=== PATIENT | female | born 1930 | race Caucasian/White ===

== ENCOUNTER 2018-09-10 11:14 | Inpatient (IN) | payer MEDICARE ==
[2018-09-10 12:04] LABS: #Basophils 0.1 thou/uL (0.0-0.2); #Lymphocytes 1.4 thou/uL (1.20-3.40); #Monocytes 0.5 thou/uL (0.11-0.59); #Neutrophils 4.2 thou/uL (1.40-6.50); %Eosinophils 0.6 % (0.0-10.0); %Lymphocytes 22.8 % (21.0-51.0); %Monocytes 7.9 % (0.0-10.0); %Neutrophils 67.7 % (42.0-75.0); Hemoglobin 14.3 g/dL (12.0-16.0); Mean Corpuscular HGB CONC 32.5 g/dL (32.0-36.0); Mean Corpuscular Hemoglobin 31.1 pg (27.0-31.0); Mean Corpuscular Volume 95.7 fL (78.0-98.0); Mean Platelet Volume 7.3 fL (7.4-10.4); Platelet Count 294 thou/uL (130-400); RBC Distribution Width 12.9 % (11.5-14.5); Red Blood Cell (RBC) Count 4.59 mill/uL (4.20-5.40); White Blood Cell (WBC) Count 6.2 thou/uL (4.8-10.8)
[2018-09-10 12:22] LABS: ALT (SGPT) 8 U/L (8-55); AST (SGOT) 11 U/L (5-34); Albumin 3.4 g/dL (3.4-4.8); Alkaline Phosphatase 61 U/L (40-150); Anion Gap 13 mmol/L (10-20); BUN (Urea Nitrogen) 9 mg/dL (9.8-20.1); Bilirubin, Total 0.8 mg/dL (0.2-1.2); CK (CPK) 19 U/L (29-168); Calc. Creatinine Clearance 0 mL/min (70-130); Calcium 9.2 mg/dL (7.8-10.44); Carbon Dioxide 25 mmol/L (23-31); Chloride 108 mmol/L (98-107); Estimated GFR-MDRD 88; Glucose 97 mg/dL (83-110); Lipase Less than 4 U/L (8-78); Potassium 3.1 mmol/L (3.5-5.1); Protein, Total 6.4 g/dL (6.0-8.3); Sodium 143 mmol/L (136-145)
[2018-09-10 12:26] LABS: CKMB 0.8 ng/mL (0-6.6); Troponin I 0.017 ng/mL (< 0.028)
[2018-09-10 12:48] LABS: Bilirubin Negative (Negative); Blood, Urine Negative (Negative); Clarity CLOUDY (Clear); Glucose, Urine (Dipstick) Negative (Negative); Leukocyte Negative (Negative); Nitrite Negative (Negative); Protein, Urine (Dipstick) Negative (Neg-Trace); Specific Gravity, Urine 1.019 (1.002-1.036); Urobilinogen 0.2 mg/dL (0.2-1.0)
--- NOTE | 2018-09-10 12:50 | CT ---
CTA CHEST WITH 3D VOLUME RENDERING WITH CONTRAST: Date: 09/10/18 INDICATION: Atrial fibrillation, difficulty breathing, tachypnea. FINDINGS: There is enlargement of the pulmonary arterial system, which may relate to changes of pulmonary arter y hypertension. There are bilateral multifocal filling defects of the segmental and subsegmental pulm onary arterial branches compatible with multifocal bilateral acute pulmonary emboli. There is a mild to moderate pericardial effusion. There is evidence of COPD and mild pulmonary fibrosis. Scattered sinclair bpleural reticulonodular opacities are present. There is no evidence of pleural effusion or pneumotho rax. Diffuse vascular disease is present, including coronary artery calcium. There is age-indetermina te compression fracture of T12. Correlate clinically. IMPRESSION: 1. Multifocal acute bilateral pulmonary emboli. 2. Mild to moderate pericardial effusion. 3. Evidence to indicate sequelae from pulmonary arterial hypertension. Telephone call findings placed to ER physician, Lázaro Nguyen, at 1203 hours on 09/10/18. CODE CR. POS: [facility]
[2018-09-10] MEDS ORDERED: Aspirin 325 MG TAB ONE (12:52)
[2018-09-10] MEDS ORDERED: Enoxaparin Sodium 60 MG/0.6 ML SYRINGE ONE (12:52)
[2018-09-10] MEDS ORDERED: hydrALAZINE 25 MG TAB ONE (14:57)
[2018-09-10] MEDS ORDERED: hydrALAZINE 10 MG TAB PO PRN (15:05)
[2018-09-10] MEDS ORDERED: ISOVUE-370 76%-LOCM 1 ML ONE (15:16)
[2018-09-10 15:26] LABS: Troponin I 0.019 ng/mL (< 0.028)
[2018-09-10 16:41] VITALS: BMI 17.9
[2018-09-10] MEDS ORDERED: Sodium Chloride 0.9% 1,000 ML IV SCH (17:00)
[2018-09-10 18:18] LABS: Troponin I 0.023 ng/mL (< 0.028)
--- NOTE | 2018-09-10 19:06 | HP ---
DATE OF ADMISSION: 09/10/2018 CHIEF COMPLAINT: Shortness of breath. HISTORY OF PRESENT ILLNESS: The patient is an 88-year-old female who has a history of dementia. The patient's daughters indicate that she had begun to develop some aggression related to her dementia. Dr. Elliott who is her PCP started the patient on some Risperdal and this ultimately did help resolv e the patient's aggressive behavior, but the patient became very lethargic and slept most of the time . Ultimately, once they recognize this was a result of the medication, Dr. Elliott decreased the dos age down to 0.5 mg, which is a third of the original dose. Subsequently, the patient was more awake and had more of a normal affect without the lethargy and has not had a return of her agitation or agg ression. However, over the last couple of weeks, the patient has been reporting significant shortnes s of breath. She has inability to even transfer effectively because of dyspnea. This has been occur ring at rest as well. They specifically deny that she has had any lower extremity injuries. She mota s have some chronic lower extremity edema if she has been on her feet throughout the day much at all. REVIEW OF SYSTEMS: Notable for some chronic constipation requiring some regular use of MiraLax. Oth erwise, she has had no fevers or chills, although she is hot and cold by nature. They also report th at her appetite has been intermittent and she tends to prefer soft foods. Otherwise, a 10-system rev iew was negative to the degree that it could be obtained from the patient with dementia. PAST MEDICAL HISTORY: Notable for the above-mentioned dementia, macular degeneration. Record indica fab she has hyperthyroidism, but she may have had that at one point, but now appears to be hypothyroi d on supplementation. She has osteoporosis with kyphosis. Daughters also had initially indicated th at she had atrial fibrillation, however, it turns out this has not ever actually been diagnosed. Dr. Elliott apparently had auscultated the patient and heard some irregularity and was concerned for the possibility of atrial fibrillation. A Holter monitor was ordered, but has not yet been performed. PAST SURGICAL HISTORY: Cholecystectomy, hysterectomy, tonsillectomy. FAMILY HISTORY: Not known. SOCIAL HISTORY: The patient is a nonsmoker, nondrinker, nondrug user. She lives next to her [facility] and has a family member staying with her basically [id number]. She is still and july es with her 91-year-old as well. ALLERGIES: None. MEDICATIONS: Aspirin, levothyroxine, Risperdal, lisinopril, memantine, calcium and MiraLax. PHYSICAL EXAMINATION: VITAL SIGNS: BP 188/104, pulse 94, respirations 29, O2 saturation 97% on 2 liters. GENERAL APPEARANCE: A frail, age appropriate female. She is awake and alert. She is in no distress . She is taking very short choppy shallow breaths, almost panting, but does not appear to be distres sed and is able to converse. HEENT: No OP lesions. NECK: Supple and symmetric. HEART: Regular with occasional ectopy. There are no significant murmurs or rubs noted. LUNGS: Have mild bibasilar rales, but fairly minimal generally diminished air exchange throughout. ABDOMEN: Soft, nontender, nondistended. Positive bowel sounds. There are no masses, no organomegal y. EXTREMITIES: Warm and dry with no edema. She does have some varicosities. No palpable cords. No e rythema. No tenderness. LABORATORY DATA: White count 6.2, hemoglobin 14.3, platelets 294,000. Sodium 143, potassium 3.1, ch loride 108, CO2 25, BUN 9, creatinine 0.64, glucose 97, calcium 92. CK is 19. Troponin 0.017. BNP 103. Albumin 3.4. Lipase less than 1. Urinalysis is negative. CT angio of the chest reveals multi ple bilateral pulmonary emboli at the segmental and subsegmental levels. She has [id number] pe ricardial effusion. No evidence to indicate any sequela of pulmonary hypertension. EKG shows sinus rhythm with occasional PACs and some slight prolongation of the QT. IMPRESSION AND PLAN: 1. Pulmonary embolism. The patient has multiple bilateral segmental and subsegmental pulmonary embo li. She has had Lovenox 1 mg/kg. We will continue that b.i.d. I discussed the case with Dr. Qamar aguilar. We will consult him as well. We will maintain supplemental oxygen as needed. I discussed with t he patient and her daughters the possibility of NOACs versus warfarin. 2. Pericardial effusion, mild to moderate in size. We will obtain an echocardiogram. 3. Hypothyroidism, repleted in the ER. 4. Hypertension. The patient's daughter has a log of her blood pressure and heart rate over the t month. Her blood pressure is typically 130s, maybe 140s systolic and her heart rate has been in th e 90s to low 100s throughout that time. We will give her her usual medications along with p.r.n. 5. Dementia. The patient appears to be quite calm and steady at the moment. She obviously had some history of some agitation. We will continue to monitor that closely. Concerning that the risperido ne may be causing some QT prolongation. 6. Hypothyroidism. Continue with her usual dose of levothyroxine. DISPOSITION: The patient was initially made DNR; however, the daughters felt they needed to discuss it with the patient's 91-year-old . The daughters are the patient's surrogate decision makers .
[2018-09-10] MEDS: Enoxaparin Sodium 60 MG/0.6 ML SYRINGE SC SCH (20:58)
--- NOTE | 2018-09-10 22:28 | ULT ---
BILATERAL LOWER EXTREMITY VENOUS DUPLEX EXAM: History: Leg pain and swelling. History of pulmonary emboli. FINDINGS: Real-time color doppler evaluation of the right and left lower extremities were performed from groin to calf. This includes the evaluation of common femoral, superficial and profunda femoral, saphenous, popliteal, and trifurcation veins. On the right side there is normal compressibility and augmentation and no evidence of DVT. On the left side there is evidence of some nonocclusive thrombus of the common femoral and profunda f emoral vessels. IMPRESSION: 1. No evidence of DVT of the right leg. 2. Non-occlusive thrombus within the common femoral vein and profunda femoral vein, compatible with D VT of the left lower extremity. POS: [facility]
--- NOTE | 2018-09-10 22:29 | CON ---
DATE OF CONSULTATION: 09/10/2018 SERVICE: Pulmonary Medicine. REASON FOR CONSULTATION: PE. HISTORY OF PRESENT ILLNESS: The patient is an 88-year-old white female with past medical history significant for advanced dementia with agitation. She was recently given some dose of risperidone. It caused an improvement in her agitation, but she became hyper-sedated for a long period of time. Ultimately, they slowly backed off the medication and realized 0.5 mg was a good dose for her on a nightly basis. It has leveled off for agitation and she is able to participate with the family. In this setting, she started having increasing shortness of breath, weakness. She was unable to do anything without significant assistance. Ultimately, because of the horrendous weakness, she was brought to the emergency department for evaluation and discovered to have hypoxic respiratory failure. She underwent initial diagnostic evaluation and CT PE protocol was consistent with bilateral pulmonary emboli. She cannot provide absolutely any history of the presentation because she has advanced dementia. She has 2 daughters and a granddaughter who are familiar with the medical community and they had many questions and we spent a great deal of time talking through some of the issues. PAST MEDICAL HISTORY: 1. Dementia, advanced. 2. Pulmonary embolism, new diagnosis with no history of DVTs. 3. Macular degeneration. 4. Hyperthyroidism. 5. Osteoporosis. PAST SURGICAL HISTORY: 1. Cholecystectomy. 2. Hysterectomy. 3. Tonsillectomy. FAMILY HISTORY: Noncontributory. SOCIAL HISTORY: She is a nonsmoker. She does not use any alcohol or illicit drugs. She lives right next to one of her daughters in [place]. She has no exposure to chemicals, dust asbestos or tuberculosis. ALLERGIES: No known drug allergies. MEDICATIONS: Lists of her inpatient medications were reviewed. No specific updates were made at this time. REVIEW OF SYSTEMS: General, head, ears, eyes, nose, throat, cardiovascular, respiratory, GI, , musculoskeletal, neurologic and skin is negative as mentioned in HPI. PHYSICAL EXAMINATION: VITAL SIGNS: Afebrile, pulse 98, blood pressure 187/86, respirations 28, saturation 96% on 2 liters nasal cannula. GENERAL: The patient is awake, alert, no apparent distress. LUNGS: Excellent air entry with no prolonged expiratory phase. There is no wheezing or rhonchi present. HEART: Normal rate, regular. ABDOMEN: Soft, nontender, nondistended. Bowel sounds are positive. MUSCULOSKELETAL: No cyanosis or clubbing. There is no pitting in the bilateral lower extremities. NEUROLOGIC: Grossly nonfocal. LABORATORY DATA: WBC 6.2, hemoglobin 14.3, platelets 294,000. Basic metabolic profile is essentially unremarkable except for potassium of 3.1. Liver function studies are unremarkable. BNP is minimally elevated at 103. Cardiac enzymes are gently up trending, but remain in the normal range at 0.23. Urinalysis is unremarkable. IMAGING DATA: CTA of the chest demonstrates bilateral pulmonary emboli. The right atrium is a little generous. That being said, there is no significant reflux of contrast into the inferior vena cava. The left ventricular cavity has a normal contour. The RV does not look overtly overloaded. She does have 4 chamber dilations. Left atrium is very well filled. Interstitial prominence is present throughout bilateral lung hammond. Diffuse calcifications are present. ASSESSMENT: 1. Acute hypoxic respiratory failure. 2. Acute pulmonary embolism without overt right ventricular heart strain. 3. Dementia, advanced. DISCUSSION AND PLAN: From my perspective, the patient is doing fine from a respiratory standpoint. We will wean away the oxygen as tolerated. I agree with her current choice of anticoagulation. I talked about the risks and benefits of anticoagulation versus no anticoagulation. I have also talked about the risks and benefits of pursuing a Coumadin versus a direct oral anticoagulant. They are going to think about what they want to do moving forward. They definitely are going to go with anticoagulation, but they are trying to decide about whether or not to go with a novel drug or conventional drug like Coumadin. Once they make that decision, we will move forward with that. I think she would be a decent candidate for a dose adjusted Eliquis for her advanced age and frailty. Pulmonary Critical Care will continue to follow along. That being said, I have nothing to change with the current management selection. 70 minutes have been devoted to this patient in various activities. I personally reviewed all imaging studies and laboratory data noted within this document. For fifty percent of this time, I was interacting with the patient at the bedside or coordinating care with the care team. For the remainder of the time I was immediately available to the patient in the hospital unit. MIGUEL
[2018-09-11 05:52] LABS: #Eosinphils 0.1 thou/uL (0.0-0.7); #Lymphocytes 1.8 thou/uL (1.20-3.40); #Monocytes 0.5 thou/uL (0.11-0.59); #Neutrophils 2.8 thou/uL (1.40-6.50); %Basophils 0.6 % (0.0-1.0); %Eosinophils 2.8 % (0.0-10.0); %Monocytes 9.6 % (0.0-10.0); Hemoglobin 12.7 g/dL (12.0-16.0); Mean Corpuscular Hemoglobin 30.9 pg (27.0-31.0); Mean Corpuscular Volume 96.4 fL (78.0-98.0); Mean Platelet Volume 7.6 fL (7.4-10.4); Platelet Count 250 thou/uL (130-400); Platelet Count 260 thou/uL (130-400); RBC Distribution Width 13.1 % (11.5-14.5); Red Blood Cell (RBC) Count 4.11 mill/uL (4.20-5.40); White Blood Cell (WBC) Count 5.2 thou/uL (4.8-10.8)
[2018-09-11 06:10] LABS: Anion Gap 9 mmol/L (10-20); BUN (Urea Nitrogen) 7 mg/dL (9.8-20.1); Calc. Creatinine Clearance 53 mL/min (70-130); Calcium 8.2 mg/dL (7.8-10.44); Carbon Dioxide 27 mmol/L (23-31); Chloride 109 mmol/L (98-107); Estimated GFR-MDRD Greater than 90; Glucose 83 mg/dL (83-110); Sodium 142 mmol/L (136-145)
[2018-09-11] MEDS: Enoxaparin Sodium 60 MG/0.6 ML SYRINGE SC SCH (08:40)
[2018-09-11] MEDS: Calcium Carbonate 600 MG TAB PO SCH (11:42)
[2018-09-11] MEDS: Lisinopril 10 MG TAB PO SCH (11:42)
[2018-09-11] MEDS ORDERED: Calcium Carbonate 600 MG TAB PO SCH (12:00)
[2018-09-11] MEDS ORDERED: Lisinopril 10 MG TAB PO SCH (12:00)
[2018-09-11] MEDS ORDERED: Levothyroxine Sodium 112 MCG TAB PO SCH (14:00)
[2018-09-11] MEDS ORDERED: hydrALAZINE 10 MG TAB PO PRN (18:19)
[2018-09-11] MEDS ORDERED: hydrALAZINE 10 MG TAB PO SCH (18:30)
[2018-09-11] MEDS ORDERED: risperiDONE 1 MG TAB PO SCH (21:00)
[2018-09-11] MEDS ORDERED: MEMANTINE HCL PO SCH (21:00)
[2018-09-11] MEDS: Apixaban 2.5 MG TAB PO SCH (21:10)
--- NOTE | 2018-09-11 21:21 | PDOC.PN ---
- Subjective Encounter Start Date: 09/11/18 Encounter Start Time: 12:00 Patient has dementia. Denies any problems with SOB or CP. Daughter believes she is doing better. - Objective Resuscitation Status: Resuscitation Status FULL:Full Resuscitation Vital Signs & Weight: Vital Signs (12 hours) Temp Pulse Resp BP BP Pulse Ox 09/11/18 18:47 92 195/88 H 09/11/18 17:40 97.8 F 92 17 195/88 H 98 09/11/18 15:10 143/100 H 09/11/18 13:56 79 187/91 H 09/11/18 12:00 98.0 F 92 18 187/91 H 97 Weight Admit Weight 101 lb 3 oz Weight 101 lb 3 oz I&O: 09/10/18 09/11/18 09/12/18 06:59 06:59 06:59 Intake Total 240 960 Output Total 300 Balance 240 660 Result Diagrams: 09/11/18 04:46 09/11/18 04:46 Phys Exam - Physical Examination Constitutional: NAD Respiratory: no wheezing, no rales, no rhonchi Decreased breath sounds generally. Still shallow breathing. Cardiovascular: RRR, no significant murmur Gastrointestinal: soft, non-tender, no distention Musculoskeletal: no edema Psychiatric: normal affect Dx/Plan (1) Pulmonary embolus Code(s): I26.99 - OTHER PULMONARY EMBOLISM WITHOUT ACUTE COR PULMONALE Status : Acute Comment: Bilateral, multiple. Continue with Lovenox. Family has largely decided to go with Xarelto. Once they confirm this, I can make the switch. Until then, continue to work on weaning oxygen as tolerated and continue Lovenox. (2) DVT (deep venous thrombosis) Code(s): I82.409 - ACUTE EMBOLISM AND THOMBOS UNSP DEEP VN UNSP LOWER EXTREMITY Status: Acute Comment: LLE DVT. (3) Tricuspid regurgitation Code(s): I07.1 - RHEUMATIC TRICUSPID INSUFFICIENCY Status: Acute (4) Dementia Code(s): F03.90 - UNSPECIFIED DEMENTIA WITHOUT BEHAVIORAL DISTURBANCE Status: Acute (5) Hypertension Code(s): I10 - ESSENTIAL (PRIMARY) HYPERTENSION Status: Acute Comment: Continue Lisinopril (6) Hypothyroidism Code(s): E03.9 - HYPOTHYROIDISM, UNSPECIFIED Status: Acute Comment: Continue synthroid. - Plan * above.
--- NOTE | 2018-09-11 22:11 | PRG ---
DATE OF SERVICE: 09/11/2018 SERVICE: Pulmonary Medicine. INTERVAL HISTORY: The patient is doing great from a respiratory standpoint. She has no distress tod ay. Her family is with her at bedside. She is finally able to get a little bit of rest. She had a fairly rough night. She did not understand where she was or what the situation was. There is no antonio dence of bleeding at this time. Otherwise, there has been no notable change to her condition. She r emains on a little bit of oxygen. Nursing reports no overnight events. PHYSICAL EXAMINATION: VITAL SIGNS: Afebrile, pulse 92, blood pressure 143/100, respirations 17, saturation 98% on 2 liters nasal cannula. GENERAL: The patient is awake and alert, in no apparent distress. LUNGS: Decent air entry. There are no rhonchi or wheezing present. HEART: Normal rate, regular. ABDOMEN: Soft, nontender, nondistended. Bowel sounds are positive. MUSCULOSKELETAL: No cyanosis or clubbing. There is no pitting in the bilateral lower extremities. NEUROLOGIC: Grossly nonfocal. LABORATORY DATA: Hemoglobin 12.7. Potassium 3.0. Basic metabolic profile is otherwise unremarkable . Cardiac enzymes remain essentially unremarkable x3. ASSESSMENT: 1. Acute hypoxic respiratory failure. 2. Acute pulmonary embolism. 3. Deep vein thrombosis. 4. Dementia, advanced. DISCUSSION AND PLAN: After discussing the risks and benefits of pursuing anticoagulation or no antic oagulation and the different types of therapy that is available, the patient's family has elected to proceed with low-dose Eliquis. We will initiate this tonight and convert her off the subcu Lovenox. We will start to wean oxygen. If she is off by tomorrow, she will be stable for transition out of [facility]. Pulmonary Critical Care will continue to follow along if she remains in house.
[2018-09-12 05:20] LABS: #Eosinphils 0.1 thou/uL (0.0-0.7); #Lymphocytes 1.7 thou/uL (1.20-3.40); #Monocytes 0.4 thou/uL (0.11-0.59); #Neutrophils 2.7 thou/uL (1.40-6.50); %Basophils 0.5 % (0.0-1.0); %Eosinophils 2.4 % (0.0-10.0); %Lymphocytes 34.6 % (21.0-51.0); %Monocytes 8.9 % (0.0-10.0); %Neutrophils 53.6 % (42.0-75.0); Hemoglobin 12.8 g/dL (12.0-16.0); Mean Corpuscular HGB CONC 32.7 g/dL (32.0-36.0); Mean Corpuscular Hemoglobin 31.5 pg (27.0-31.0); Mean Corpuscular Volume 96.3 fL (78.0-98.0); Mean Platelet Volume 7.3 fL (7.4-10.4); Platelet Count 281 thou/uL (130-400); Red Blood Cell (RBC) Count 4.06 mill/uL (4.20-5.40)
[2018-09-12] MEDS ORDERED: Levothyroxine Sodium 112 MCG TAB PO SCH (06:00)
[2018-09-12 06:01] LABS: Anion Gap 5 mmol/L (10-20); BUN (Urea Nitrogen) 9 mg/dL (9.8-20.1); Calc. Creatinine Clearance 43 mL/min (70-130); Calcium 8.9 mg/dL (7.8-10.44); Carbon Dioxide 31 mmol/L (23-31); Chloride 108 mmol/L (98-107); Estimated GFR-MDRD 82; Glucose 89 mg/dL (83-110); Potassium 3.7 mmol/L (3.5-5.1); Sodium 140 mmol/L (136-145)
[2018-09-12] MEDS: Apixaban 2.5 MG TAB PO SCH ×2 (09:19→19:07)
[2018-09-12] MEDS: Calcium Carbonate 600 MG TAB PO SCH (09:19)
[2018-09-12] MEDS: Lisinopril 10 MG TAB PO SCH (09:19)
[2018-09-12 15:39] VITALS: BP 155/76; TEMP 98.7
--- NOTE | 2018-09-12 18:21 | PRG ---
DATE OF SERVICE: 09/12/2018 SERVICE: Pulmonary Medicine. INTERVAL HISTORY: The patient is doing fine from a respiratory standpoint. He is breathing comforta cyrus. She is down to 1 liter nasal cannula. We have not tried her on room air yet. Otherwise, there has been no interval change to her condition. She is pleasantly confused and has no specific compla ints currently. OBJECTIVE: VITAL SIGNS: Afebrile, pulse 93, blood pressure 155/76, respirations 20, saturation 96% on 1 liter n debbi cannula. GENERAL: The patient is awake, alert, in no apparent distress. LUNGS: Excellent air entry. There is no prolonged expiratory phase or wheezing present. HEART: Normal rate, regular. ABDOMEN: Soft, nontender, nondistended. Bowel sounds are positive. MUSCULOSKELETAL: No cyanosis or clubbing. There is no pitting in the bilateral lower extremities. NEUROLOGIC: Grossly nonfocal. LABORATORY DATA: Potassium 3.7. Basic metabolic profile is otherwise unremarkable. Hemoglobin 12.8 , platelets 281,000. WBC falls within the normal limits. Urine cultures negative. IMAGING: Echocardiogram does not demonstrate any evidence of right ventricular heart strain. There is a normal ejection fraction. Left side does not appear to be underfilled at this time. ASSESSMENT: 1. Acute hypoxic respiratory failure, resolving. 2. Acute pulmonary embolism. 3. Deep venous thrombosis. 4. Dementia, advanced. DISCUSSION AND PLAN: The patient has been started on Eliquis (this is dose adjusted for her age and frailty). At this point, the patient has no further requirements for inpatient Pulmonary or Critical Care opinion. I will check her saturations on room air. If they are okay, she can be discharged fr om the hospital today or tomorrow. If she requires oxygen, this can be arranged tomorrow for the out patient setting and she is still stable for transition out of the hospital. With her advanced sara ia, the sooner we get her out of the hospital and to her home environment, she will do long-ter m.
--- NOTE | 2018-09-13 13:49 | EKG ---
Test Reason : Blood Pressure : / mmHG Vent. Rate : 091 BPM Atrial Rate : 091 BPM P-R Int : 154 ms QRS Dur : 080 ms QT Int : 422 ms P-R-T Axes : 064 025 061 degrees QTc Int : 519 ms Normal sinus rhythm Possible Left atrial enlargement Prolonged QT Abnormal ECG Confirmed by JOSE ELIAS DOUGLAS, FEI ([id number]), rewrite editor SHARDA KIMBALL ([id number]) on 09/13/2018 1:48:40 PM Referred By: Confirmed By:FEI MOCTEZUMA MD
== END 2018-09-12 19:40 | disposition home or self-care (01) | DRG 175 ==
LOC: ERS 11:14 → 2NO 16:26
PROVIDERS: ADMIT Internal Medicine; ATTEND Internal Medicine
PROC: B50DYZZ Plain Radiography of Bilateral Lower Extremity Veins using Other Contrast (ICD-10-PCS; principal; 2018-09-10)
DX: I26.99 Other pulmonary embolism without acute cor pulmonale (principal); J96.01 Acute respiratory failure with hypoxia; I31.3 Pericardial effusion (noninflammatory); I07.1 Rheumatic tricuspid insufficiency; F03.90 Unspecified dementia, unspecified severity, without behavioral disturbance, psychotic disturbance, mood disturbance, and anxiety; E03.9 Hypothyroidism, unspecified; I10 Essential (primary) hypertension; M81.0 Age-related osteoporosis without current pathological fracture; K59.09 Other constipation
CPT/HCPCS: 36415; 36416; 71275; 80048; 80053; 81003; 82550; 82553; 83690; 83880; 84484; 85025; 85520; 87086; 93005; 93306; 93970; 94760; 96360; 96372; J1650

== ENCOUNTER 2018-10-27 08:08 | Inpatient (IN) | payer MEDICARE ==
[2018-10-27 08:50] LABS: #Eosinphils 0.2 thou/uL (0.0-0.7); #Monocytes 0.4 thou/uL (0.11-0.59); #Neutrophils 4.5 thou/uL (1.40-6.50); %Basophils 0.7 % (0.0-1.0); %Lymphocytes 27.5 % (21.0-51.0); %Monocytes 5.8 % (0.0-10.0); Hemoglobin 13.2 g/dL (12.0-16.0); Mean Corpuscular HGB CONC 33.1 g/dL (32.0-36.0); Mean Corpuscular Hemoglobin 31.9 pg (27.0-31.0); Mean Corpuscular Volume 96.4 fL (78.0-98.0); Mean Platelet Volume 7.2 fL (7.4-10.4); Platelet Count 294 thou/uL (130-400); RBC Distribution Width 12.8 % (11.5-14.5); Red Blood Cell (RBC) Count 4.14 mill/uL (4.20-5.40); White Blood Cell (WBC) Count 7.1 thou/uL (4.8-10.8)
[2018-10-27 09:12] LABS: ALT (SGPT) 8 U/L (8-55); AST (SGOT) 10 U/L (5-34); Alkaline Phosphatase 53 U/L (40-150); Anion Gap 5 mmol/L (10-20); BUN (Urea Nitrogen) 9 mg/dL (9.8-20.1); Bilirubin, Total 0.6 mg/dL (0.2-1.2); Calc. Creatinine Clearance 0 mL/min (70-130); Calcium 8.8 mg/dL (7.8-10.44); Carbon Dioxide 34 mmol/L (23-31); Chloride 108 mmol/L (98-107); Estimated GFR-MDRD 86; Globulin 2.9 g/dL (2.4-3.5); Glucose 134 mg/dL (83-110); Potassium 3.9 mmol/L (3.5-5.1); Protein, Total 5.9 g/dL (6.0-8.3); Sodium 143 mmol/L (136-145)
--- NOTE | 2018-10-27 09:16 | RAD ---
AP PELVIS: Date: 10/27/18 HISTORY: Fell out of bed. FINDINGS: There is an inter and subtrochanteric fracture of the left hip. The bones appear demineralized. Fract ure is minimally displaced as seen on this single AP projection. Pelvic ring itself appears intact. IMPRESSION: Inter and slightly subtrochanteric fracture of the left hip. POS: [facility]
--- NOTE | 2018-10-27 09:17 | RAD ---
LEFT HIP 2 VIEWS: Date: 10/27/18 HISTORY: Fell out of bed. FINDINGS: There is an obliquely oriented inter/subtrochanteric fracture of the left hip. The fracture extends t hrough the greater trochanter and extends into a subtrochanteric region beneath the lesser trochanter . Fracture is minimally displaced. The bones are demineralized. IMPRESSION: Inter and subtrochanteric fracture of the left hip. POS: [facility]
--- NOTE | 2018-10-27 09:25 | CT ---
CT BRAIN WITHOUT CONTRAST: Date: 10/27/18 HISTORY: Injury, fall, altered mental status. 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 No evidence of acute infarct, hemorrhage, midline shift, or abnormal extra-axial f luid collections are noted. The ventricular size is appropriate and the basilar cisterns are patent. The bony calvarium is intact. The visualized paranasal sinuses and mastoid air cells are well aerated . IMPRESSION: No CT evidence of acute intracranial process. POS: [facility]
[2018-10-27] MEDS ORDERED: Ondansetron PF 4 MG/2 ML Vial ONE (10:15)
[2018-10-27] MEDS ORDERED: Morphine 4 MG/ML VIAL ONE (10:38)
--- NOTE | 2018-10-27 10:42 | RAD ---
PORTABLE CHEST 1 VIEW: Date: 10/27/18 Time: 0850 hours HISTORY: Preoperative evaluation. Left hip fracture. FINDINGS: Comparison made with exam of 08/28/18. The heart is enlarged. The aorta is tortuous. Chronic changes are again seen in the lung hammond. No f ocal areas of consolidation, pneumothorax, itz pulmonary edema, or pleural effusions are seen. IMPRESSION: No acute process. POS: [facility]
[2018-10-27 10:48] LABS: INR-International Normal Ratio 1.3; Prothrombin Time 16.2 SEC (12.0-14.7)
[2018-10-27] MEDS ORDERED: Dextrose 5% in Water 1,000 ML IV PRN (13:58)
[2018-10-27] MEDS ORDERED: Cyclobenzaprine 10 MG TAB PO PRN (13:58)
[2018-10-27] MEDS ORDERED: Ondansetron PF 4 MG/2 ML Vial IVP PRN (13:58)
[2018-10-27] MEDS ORDERED: Ondansetron ODT 4 MG TAB PO PRN (13:58)
[2018-10-27] MEDS ORDERED: Dextrose 50% Abboject 50 ML SYRINGE SLOW IVP PRN (13:58)
[2018-10-27] MEDS ORDERED: hydrALAZINE 20 MG/ML VIAL SLOW IVP PRN (13:58)
[2018-10-27] MEDS ORDERED: Morphine 4 MG/ML VIAL SLOW IVP PRN (14:15)
[2018-10-27 14:23] VITALS: BMI 17.2
--- NOTE | 2018-10-27 14:32 | HP ---
CONSULTATIONS: Orthopedics, Dr. Thomas. HISTORY OF PRESENT ILLNESS: The patient is an 88-year-old woman, who resides at home with her 91-year-old . The patient reportedly fell out of bed this morning, landing on her left side. The patient was unable to ambulate. EMS was notified. She was brought to the emergency department. She underwent evaluation. On examination, she was noted to have a left hip fracture, at which time, we were asked to evaluate the patient for admission and obtain orthopedic consultation. By report, there was no loss of consciousness or the patient hitting her head. The patient is on Eliquis for her chronic atrial fibrillation. The patient underwent CT evaluation of her head, did not show any bleed. Neurologically, she appears at her baseline, which is A and O x1 at best. ALLERGIES: NONE. CURRENT MEDICATIONS: Eliquis, calcium, Synthroid, lisinopril, Namenda, and Risperdal. PAST MEDICAL HISTORY: Hypothyroid, dementia, osteoporosis, atrial fibrillation, and macular degeneration. PAST SURGICAL HISTORY: Cholecystectomy, hysterectomy, and tonsillectomy. SOCIAL HISTORY: The patient lives with her spouse, they live next to their daughter. The patient has a caregiver who comes in during the day and then family takes care of her at night. The patient prior to this fall could ambulate independently, but needed help due to her disorientation. REVIEW OF SYSTEMS: A 10-point review of systems is negative except for otherwise stated. PHYSICAL EXAMINATION: VITAL SIGNS: Blood pressure 112/55, heart rate 76, respirations 20, oxygen saturations 100% on 2 L via nasal cannula, and temperature is 97.8. GENERAL: The patient is resting in bed. She is awake, does not follow command, and will acknowledge me verbally, but otherwise is nonverbal. According to the daughter, who is at bedside, this is her baseline. The patient appears frail and somewhat emaciated. HEENT: Head is normocephalic and atraumatic. Eyes are PERRLA. The patient will not follow to check extraocular motion intact, but appears intact. Ears are atraumatic without discharge. Oropharynx is clear. NECK: Nontender. Trachea is midline. No JVD. CHEST: Clear to auscultation with moderate inspiratory and expiratory effort, again restricted by the patient's compliance. HEART: Irregularly irregular, consistent with her atrial fibrillation. ABDOMEN: Soft, flat, and nontender with active bowel sounds. PELVIS: Stable with tenderness to palpation of the left hip, consistent with her fracture. EXTREMITIES: Neurovascularly intact x4. BACK: By report, it is atraumatic and nontender. DIAGNOSTIC STUDIES: LABORATORY RESULTS: White blood cell count 7.1, hemoglobin 13.2, hematocrit 39.9, and platelets 294. Sodium 143, potassium 3.9, chloride 108, CO2 of 34, BUN 9, creatinine 0.65, and glucose 134. LFTs are unremarkable. PT 16, INR 1.3, and PTT 27. IMAGING STUDIES: CT of the brain without contrast shows no CT evidence of acute intracranial process. AP pelvis shows an intertrochanteric/subtrochanteric fracture of the left hip. Left hip view showed inter and subtrochanteric fracture of the left hip. AP chest shows no acute process. ASSESSMENT AND PLAN: 1. Status post fall from bed. 2. Left intertrochanteric and subtrochanteric hip fracture. 3. History of severe dementia. 4. History of hypothyroidism. 5. History of hypertension. Plan will be to admit the patient to the surgical floor. Treatment discussion and options were discussed with the daughter. The patient also is a do not resuscitate. The patient will have a family discussion to discuss whether they want to pursue a surgical procedure versus hospice-like treatment. The family will speak with Dr. Thomas. He may give them his view and we will proceed as directed by the family. The patient currently will have IV pain medicine, pulmonary toilet, gastritis, and mechanical VTE prophylaxis. We will make her n.p.o. after midnight unless this changes. The evaluation, examination, laboratory, and radiographic findings will be discussed with Dr. Arizmendi after this dictation. Job ID: [id number]
[2018-10-27] MEDS ORDERED: Acetaminophen 1,000 MG in Premix Bag 1 BAG IVPB SCH (15:00)
[2018-10-27] MEDS ORDERED: Levothyroxine Sodium 112 MCG TAB PO SCH (15:00)
[2018-10-27] MEDS ORDERED: CEFAZOLIN 2 GM/50 ML-DEXTROSE 2 GM in Premix Bag 1 BAG IVPB SCH (16:30)
[2018-10-27] MEDS: Ketorolac Tromethamine 30 MG/ML VIAL IVP SCH ×2 (16:43→20:19)
[2018-10-27] MEDS ORDERED: Prevnar 13-Val Conj/PF 0.5 ML SYRINGE IM ONE (16:45)
[2018-10-27] MEDS: Sodium Chloride 0.9% 1,000 ML IV SCH (16:53)
[2018-10-27] MEDS: Acetaminophen 1,000 MG in Premix Bag 1 BAG IVPB SCH (20:20)
[2018-10-27] MEDS: Famotidine 20 MG TAB PO SCH (21:05)
[2018-10-28] MEDS: Acetaminophen 1,000 MG in Premix Bag 1 BAG IVPB SCH ×6 (01:27→23:14)
[2018-10-28] MEDS ORDERED: risperiDONE 0.25 MG TAB PO SCH (01:30)
[2018-10-28] MEDS: Ketorolac Tromethamine 30 MG/ML VIAL IVP SCH ×6 (02:25→23:14)
[2018-10-28] MEDS: Levothyroxine Sodium 112 MCG TAB PO SCH (03:19)
[2018-10-28 05:53] LABS: #Lymphocytes 1.6 thou/uL (1.20-3.40); #Neutrophils 7.8 thou/uL (1.40-6.50); %Basophils 0.1 % (0.0-1.0); %Eosinophils 0.2 % (0.0-10.0); %Monocytes 9.6 % (0.0-10.0); %Neutrophils 75.2 % (42.0-75.0); Hemoglobin 10.6 g/dL (12.0-16.0); Mean Corpuscular HGB CONC 33.4 g/dL (32.0-36.0); Mean Corpuscular Hemoglobin 32.3 pg (27.0-31.0); Mean Corpuscular Volume 96.5 fL (78.0-98.0); Mean Platelet Volume 7.7 fL (7.4-10.4); Platelet Count 227 thou/uL (130-400); RBC Distribution Width 12.7 % (11.5-14.5); Red Blood Cell (RBC) Count 3.29 mill/uL (4.20-5.40); White Blood Cell (WBC) Count 10.3 thou/uL (4.8-10.8)
[2018-10-28 06:11] LABS: Anion Gap 7 mmol/L (10-20); BUN (Urea Nitrogen) 19 mg/dL (9.8-20.1); Calc. Creatinine Clearance 47 mL/min (70-130); Calcium 8.3 mg/dL (7.8-10.44); Carbon Dioxide 30 mmol/L (23-31); Chloride 108 mmol/L (98-107); Estimated GFR-MDRD Greater than 90; Glucose 88 mg/dL (83-110); Sodium 141 mmol/L (136-145)
[2018-10-28] MEDS: Famotidine 20 MG TAB PO SCH ×3 (07:41→20:40)
[2018-10-28] MEDS: Lisinopril 10 MG TAB PO SCH (07:42)
[2018-10-28] MEDS ORDERED: Neomycin-Polymyxin 1 ML AMP ONE (07:50)
[2018-10-28] MEDS ORDERED: CEFAZOLIN 2 GM/50 ML BAG ONE (07:50)
[2018-10-28] MEDS ORDERED: traMADol HCl 50 MG TAB PO PRN (08:09)
[2018-10-28] MEDS ORDERED: Ondansetron PF 4 MG/2 ML Vial IVP PRN (08:09)
[2018-10-28] MEDS ORDERED: Fleet Enema 133 ML BOT PR PRN (08:09)
[2018-10-28] MEDS ORDERED: Cepastat Lozenges 1 LOZ PO PRN (08:09)
[2018-10-28] MEDS ORDERED: Bisacodyl 10 MG SUPP PR PRN (08:09)
[2018-10-28] MEDS ORDERED: Ondansetron ODT 4 MG TAB PO PRN (08:09)
[2018-10-28] MEDS ORDERED: Milk Of Magnesia 30 ML UDCUP PO PRN (08:09)
[2018-10-28] MEDS ORDERED: Fentanyl 100 MCG/2 ML VIAL ONE ×2 (08:33→09:46)
[2018-10-28] MEDS ORDERED: PHENYLEPHRINE-NS 100 MCG/ML 10 ML SYRINGE ONE ×2 (08:33→10:45)
[2018-10-28] MEDS ORDERED: Ondansetron PF 4 MG/2 ML Vial ONE (10:45)
[2018-10-28] MEDS ORDERED: PROPOFOL 200 MG/20 ML VIAL ONE (10:45)
[2018-10-28] MEDS ORDERED: Glycopyrrolate 0.2 MG/ML 5 ML SYRINGE ONE (10:45)
[2018-10-28] MEDS ORDERED: Lidocaine 1% PF 5 ML VIAL ONE (10:45)
[2018-10-28] MEDS: Sodium Chloride 0.9% 1,000 ML IV SCH ×2 (11:20→20:45)
--- NOTE | 2018-10-28 11:25 | OP ---
DATE OF PROCEDURE: 10/28/2018 PREOPERATIVE DIAGNOSIS: Comminuted intertrochanteric fracture of the left hip. POSTOPERATIVE DIAGNOSIS: Comminuted intertrochanteric fracture of the left hip. PROCEDURE PERFORMED: Open reduction and internal fixation of intertrochanteric fracture utilizing a trochanteric fixation nail. ANESTHESIA: General. TECHNIQUE: The patient was given preoperative IV antibiotics, was taken to the operating room, placed in a supine position. Satisfactory general anesthesia was performed. The patient was placed in the fracture table. All bony prominence were well padded. Tractions were applied to padded left foot and ankle. C-arm verified good alignment of the intertrochanteric fracture of the proximal femoral in AP and lateral views. The left hip and thigh were then sterilely prepped and draped in the usual fashion. A longitudinal incision was made proximal to the greater trochanter approximately 2-1/2 inches in length. Under fluoroscopic visualization, a guidepin was placed through the greater trochanter and then was overreamed. A Synthes 11 mm trochanteric nail was then inserted into the proximal femur to the proper level through a separate 2-inch incision in the lateral aspect to the thigh. A guidepin was place through the lateral cortex up to the femoral neck and head, and was appropriately measured and 100 mm helical blade was inserted into the femoral neck and head. The intertrochanteric fracture was compressed and then the helical blade was locked onto the berenice through the same incision in the lateral aspect of the thigh. A 5.0 locking screw was inserted into the distal aspect of the berenice. Again, this was performed under fluoroscopic visualization and showed good reduction of the fracture and good internal fixation. Both wounds were then irrigated with normal saline. They were closed using #2 Vicryl for the iliotibial band, 0 Vicryl for the fat and subcutaneous tissue, and the skin was closed with 3-0 Rapide. Sterile dressing was applied and the patient was then awakened, extubated, and transferred to recovery room in stable condition. ESTIMATED BLOOD LOSS: 100 mL. COMPLICATION: None. Job ID: [id number]
--- NOTE | 2018-10-28 13:18 | CON ---
DATE OF CONSULTATION: 10/27/2018 HISTORY OF PRESENT ILLNESS: Ms. Perez is an 88-year-old white female, who has severe dementia. The patient lives at home with her . The patient requires 24-hour care, which is currently being performed by her as well as a nurse during the day and also two of the patient's daughters who live nearby. The patient has severe dementia and is unable to provide any of the history and all the history had been obtained from the patient's daughter. The patient was in bed, and she fell out of bed this morning. She did complain of pain in the left hip area. She was brought to the emergency room, where x-rays revealed a comminuted intertrochanteric fracture of the left proximal femur. PAST MEDICAL HISTORY AND MEDICAL ILLNESS: Severe dementia, hypothyroidism, osteoporosis, atrial fibrillation, macular degeneration, and history of deep venous thrombosis. PAST SURGICAL HISTORY: Cholecystectomy, hysterectomy, and tosillectomy. ALLERGIES: NONE. CURRENT MEDICATIONS: 1. Aspirin 81 mg daily. 2. Levothyroxine. 3. Risperidone. 4. Lisinopril. 5. Eliquis. SOCIAL HISTORY: The patient is . She lives at home. She does not use tobacco or alcohol. PHYSICAL EXAMINATION: GENERAL: The patient is a thin female. She is very soft spoken, but cannot remember any details in the history. She is able to perform simple commands. HEENT: Unremarkable for age. NEUROLOGIC: Cranial nerves 2 through 12 are grossly intact. NECK: Has some limited range of motion, but it is nonpainful. LUNGS: Clear bilaterally. HEART: Regular rate and rhythm. ABDOMEN: Soft, nontender. Bowel sounds positive. : Not done. EXTREMITIES: The patient is able to move both upper extremities and right lower extremity without pain. The left lower extremity is short and externally rotated. She has good peripheral pulse. She is able to move her left ankle and toes well. IMAGING STUDIES: X-rays revealed a comminuted intertrochanteric fracture of the left hip. There are minimal arthritic changes in the hip joint. EKG shows normal sinus rhythm with a rate of 76 with infrequent premature ventricular complexes and PACs. CT scan of the head shows changes of cortical atrophies and chronic small vessel ischemic disease and old infarctions. No evidence of any acute abnormalities. IMPRESSION: 1. Comminuted intertrochanteric fracture of the left hip. 2. Atrial fibrillation. 3. Severe dementia. 4. Hypothyroidism. 5. Osteoporosis. 6. Macular degeneration. PLAN: I talked with the patient's daughter. My recommendation would be to stabilize the left hip with trochanteric fixation nail. This would provide some stability for the hip that would improve nursing care. The patient's daughter questions were answered. She will contact her other sister and siblings and will make a decision. If they do agree to proceed with surgery, then we will schedule this for tomorrow morning. Job ID: [id number]
--- NOTE | 2018-10-28 14:09 | RAD ---
RADIOGRAPH LEFT HIP 2 VIEWS: Date: 10/28/18 Time: 1020 hours HISTORY: 88-year-old female with acute, traumatic intertrochanteric fracture of the left proximal femur. COMPARISON: 10/27/18. FINDINGS: Fluoroscopic spot images obtained with C-arm. There has been interval reduction of the intertrochante yuval fracture. There has been interval placement of a gamma nail type of metallic hardware with distal tip in the femoral head. Short intramedullary nail reaches the proximal-mid femoral diaphysis, with single distal stabilization screw. IMPRESSION: Status post reduction and gamma nail fixation of the acute, traumatic, displaced, left intertrochante yuval fracture. POS: ESTHELA
--- NOTE | 2018-10-28 14:55 | PRG ---
DATE OF SERVICE: 10/28/2018 SUBJECTIVE: The patient is hospital day #2, status post today undergoing ORIF of left hip fracture. The patient did well with the surgery and is currently back on the surgical floor. She is complaining of some pain, but has not attempted any p.o.'s yet. OBJECTIVE: VITAL SIGNS: Temperature 98.0, heart rate 92, blood pressure 129/55, respirations 18, and oxygen saturation is 97% on 2 L via nasal cannula. GENERAL: The patient is resting in bed. She does appear to be in some discomfort. She is repetitive in her words, which from my evaluation yesterday and with family's agreement, this is at her baseline secondary to her dementia and Alzheimer's. HEENT: Unremarkable. LUNGS: Clear to auscultation. HEART: Regular rate and rhythm. ABDOMEN: Soft with active bowel sounds. EXTREMITIES: Neurovascularly intact x4. Postop dressing is clean, dry, and intact. LABORATORY FINDINGS: Preoperatively, white blood cell count 10.3, hemoglobin 10.6, hematocrit 31.7, and platelets 227. Sodium 141, potassium 4.0, chloride 108, CO2 of 30, BUN 19, creatinine 0.62, and glucose 88. IMAGING STUDIES: There were no radiographs to review this morning. ASSESSMENT: 1. Status post fall. 2. Status post open reduction and internal fixation of left hip fracture. 3. Severe Alzheimer's/dementia. PLAN: Plan will be to continue supportive care. Once the pain is controlled, we will have Physical and Occupational Therapy work with her. There was a fairly lengthy discussion with the family members regarding placement afterwards. Family was in agreement that they would not want [facility] placement, that they would rather take her home, but were amiable to rehab or swing bed facility, if available and if appropriate. It is relayed to them that most likely, the decision would need to be made until Tuesday at the earliest. The evaluation, examination, laboratory, and radiographic findings were done with Dr. Arizmendi this morning during rounds. Job ID: [id number]
[2018-10-28] MEDS: Ferrous Gluconate 324 MG TAB PO SCH ×2 (15:33→20:40)
[2018-10-28] MEDS: Multivitamin W/ Minerals 1 TAB PO SCH (15:33)
[2018-10-28] MEDS: Senokot S 8.6-50 MG TAB PO SCH ×2 (15:33→22:19)
[2018-10-28] MEDS ORDERED: Acetaminophen 1,000 MG in Premix Bag 1 BAG IVPB SCH (20:00)
[2018-10-28] MEDS: risperiDONE 1 MG TAB PO SCH (20:40)
[2018-10-28] MEDS: traMADol HCl 50 MG TAB PO PRN (20:51)
[2018-10-29] MEDS: Ketorolac Tromethamine 30 MG/ML VIAL IVP SCH ×4 (05:51→23:42)
[2018-10-29] MEDS: Acetaminophen 1,000 MG in Premix Bag 1 BAG IVPB SCH ×3 (05:51→17:33)
[2018-10-29] MEDS: Levothyroxine Sodium 112 MCG TAB PO SCH (05:52)
[2018-10-29] MEDS: Sodium Chloride 0.9% 1,000 ML IV SCH ×3 (05:55→22:23)
[2018-10-29 06:44] LABS: Hemoglobin 8.3 g/dL (12.0-16.0); Mean Corpuscular HGB CONC 34.1 g/dL (32.0-36.0); Mean Corpuscular Hemoglobin 32.9 pg (27.0-31.0); Mean Corpuscular Volume 96.4 fL (78.0-98.0); Platelet Count 178 thou/uL (130-400); RBC Distribution Width 12.6 % (11.5-14.5); Red Blood Cell (RBC) Count 2.51 mill/uL (4.20-5.40); White Blood Cell (WBC) Count 5.8 thou/uL (4.8-10.8)
[2018-10-29] MEDS: Famotidine 20 MG TAB PO SCH ×2 (08:54→20:56)
[2018-10-29] MEDS: Ferrous Gluconate 324 MG TAB PO SCH ×3 (08:54→21:02)
[2018-10-29] MEDS: Senokot S 8.6-50 MG TAB PO SCH ×2 (08:54→20:58)
[2018-10-29] MEDS: Lisinopril 10 MG TAB PO SCH (08:54)
[2018-10-29] MEDS: Multivitamin W/ Minerals 1 TAB PO SCH (08:54)
[2018-10-29] MEDS: risperiDONE 1 MG TAB PO SCH (20:56)
[2018-10-30] MEDS: Levothyroxine Sodium 112 MCG TAB PO SCH (06:17)
[2018-10-30 06:36] LABS: Hemoglobin 8.7 g/dL (12.0-16.0); Mean Corpuscular HGB CONC 33.1 g/dL (32.0-36.0); Mean Corpuscular Hemoglobin 32.1 pg (27.0-31.0); Mean Corpuscular Volume 96.8 fL (78.0-98.0); Mean Platelet Volume 7.6 fL (7.4-10.4); Platelet Count 215 thou/uL (130-400); RBC Distribution Width 12.6 % (11.5-14.5); White Blood Cell (WBC) Count 6.3 thou/uL (4.8-10.8)
[2018-10-30] MEDS: Ketorolac Tromethamine 30 MG/ML VIAL IVP SCH (06:51)
--- NOTE | 2018-10-30 07:51 | PRG ---
DATE OF SERVICE: 10/29/2018 SUBJECTIVE: The patient is hospital day #3, postoperative day #2, status post ORIF of left hip fracture. The patient remained on the surgical floor. She reportedly was able to work with physical therapy yesterday, which consists of primarily just standing, which with her advanced dementia and medical conditions, this was impressive. The patient had no issues overnight. Family reports that she is taking p.o. and has not had any issues regarding pain. PHYSICAL EXAMINATION: VITAL SIGNS: Temperature is 97.5, heart rate 87, blood pressure 127/63, respirations 18, and oxygen saturation 92% on room air. GENERAL: The patient currently is sleeping. Daughter at bedside states that the patient has just fallen asleep, she was up this morning and had breakfast. So for my exam, I did not wake her up. HEENT: Remains unremarkable. LUNGS: Clear to auscultation bilaterally. HEART: Regular rate and rhythm. ABDOMEN: Soft with active bowel sounds. EXTREMITIES: Neurovascularly intact x4. Her postop dressings are clean, dry, and intact. LABORATORY FINDINGS: White blood cell count 5.1, hemoglobin 8.3, hematocrit 24.2, platelets 178. Sodium 141, potassium 4.0, chloride 108, CO2 of 30, BUN 19, creatinine is 0.62, glucose 88. There are no radiographs reviewed this morning. ASSESSMENT AND PLAN: 1. Status post fall. 2. Status post open reduction and internal fixation of left hip fracture. 3. Severe Alzheimer/dementia. PLAN: Would be to continue supportive care. After discussion with family again, the patient is likely a swing bed facility candidate. It is not likely that she will be able to tolerate multiple hours of physical therapy and inpatient rehab, but the family will discuss with the case workers tomorrow and we will see what the recommendations are from Physical and Occupational Therapy. Job ID: [id number]
--- NOTE | 2018-10-30 07:52 | PRG ---
DATE OF SERVICE: 10/29/2018 SUBJECTIVE: The patient is 1 day status post ORIF of an intertrochanteric fracture of the left hip. Physical Therapy worked with the patient. She was able to first sit on the side of the bed and then stand with a walker. The patient tolerated it barely well. OBJECTIVE: VITAL SIGNS: The patient has been afebrile. Her last vital signs show temperature of 97.5, pulse 87, respiratory rate 18, and blood pressure 127/63. LABORATORY DATA: Her hemoglobin is 8.3 and hematocrit 24.2. PLAN: The patient will continue with physical therapy. We have started iron supplement to help with the anemia. We will recheck her blood count tomorrow. I explained to the patient's family that because of the Eliquis, she is more likely to bleed from the fracture and postoperatively, but we will keep close eye on that to see how she does. Job ID: [id number]
[2018-10-30] MEDS: Famotidine 20 MG TAB PO SCH ×2 (09:05→20:03)
[2018-10-30] MEDS: Senokot S 8.6-50 MG TAB PO SCH ×2 (09:05→20:04)
[2018-10-30] MEDS: Lisinopril 10 MG TAB PO SCH (09:05)
[2018-10-30] MEDS: Multivitamin W/ Minerals 1 TAB PO SCH (09:05)
[2018-10-30] MEDS: traMADol HCl 50 MG TAB PO PRN ×2 (09:06→16:02)
[2018-10-30] MEDS: Ferrous Gluconate 324 MG TAB PO SCH ×2 (09:06→20:04)
--- NOTE | 2018-10-30 11:11 | PRG ---
DATE OF SERVICE: SUBJECTIVE: Ms. Perez has no complaints today. She is confused. She is afebrile. OBJECTIVE: VITAL SIGNS: Stable. ABDOMEN: Soft. EXTREMITIES: Wounds are dressed. ASSESSMENT: Left hip fracture, status post ORIF. PLAN: Eventually will go to intermediate. Job ID: [id number]
[2018-10-30] MEDS: Sodium Chloride 0.9% 1,000 ML IV SCH (12:00)
--- NOTE | 2018-10-30 13:27 | PQF ---
CLINICAL DOCUMENTATION IMPROVEMENT CLARIFICATION FORM: ICD-10 Updated PLEASE DO AN ADDENDUM TO THE PROGRESS NOTE WITH ANY DOCUMENTATION UPDATES OR ADDITIONS AND CARRY THROUGH TO DC SUMMARY. THANK YOU. DATE: 10/30 ATTN: BALJIT RODRIGUEZ PA-C Please exercise your independent, professional judgment in responding to the clarification form. Clinical indicators are provided on the bottom of this form for your review. Please check appropriate box(s): BMI < 19 with associated diagnosis of: (check one) [ ] Underweight [ X ] Cachexia [ ] Other diagnosis [ ] Unable to determine For continuity of documentation, please document condition throughout progress notes and discharge summary. Thank You. BMI < 19 Under weight 19 - 24.9 Healthy 25.0 - 29.9 Slightly Overweight 30.0 - 34.9 Obese 35.0 - 39.9 Severely Obese 40.0 and Over Morbidly Obese CLINICAL INDICATORS - SIGNS / SYMPTOMS / LABS BMI: 17.2 H&P DOCUMENTATION 10/27 (MICHAEL): PHYSICAL EXAM: GENERAL - PT APPEARS FRAIL & SOMEWHAT EMACIATED RISK FACTORS: ALZHEIMER DEMENTIA STEADY WEIGHT LOSS PICKING OUT AND/OR SPITTING OUT FOODS WITH TEXTURES SHE DOESN'T LIKE TREATMENTS: NUTRITION ASSESSMENT NUTRITIONAL SUPPLEMENTS (ENSURE ENLIVE BID & MIGHTY SHAKES TID) THANK YOU! Janessa (This form is maintained as a part of the permanent medical record) 2014 [email or web address]. All Rights Reserved Janessa Gomez RN, BSN [email or web address] Office: [phone] [facility]
--- NOTE | 2018-10-30 16:25 | PRG ---
DATE OF SERVICE: 10/30/2018 This afternoon, the patient's family, specifically daughter had some concerns about her care. The Hager was discontinued earlier today or the order was written for and the daughter is refusing the catheter to be removed. She is also very concerned about the risperidone not being properly ordered twice a day. The patient remains stable. She is sitting at the bedside. Hemodynamically stable. She is awake, but confused. I had a long discussion with the patient's normal head of product as well as her daughter about the importance of timely discontinuation of Hager catheter secondary to concerns in an elderly hip fracture patient for UTI, urosepsis, even . We discussed that our hip fracture protocol which includes tramadol for pain as well as early removal of catheters is for the patient's better good and has shown in studies to lower mortality and lower the risk of readmission. The daughter does not think the patient will be able to urinate on her own and she is concerned that she holds her urine and this is a problem. I explained to her that once the catheter comes out, a p.r.n. order for in-and-out cath will be written for. In-and-out catheters which are safer than indwelling Hager catheter for UTI and urosepsis risk. The patient's daughter is very angry at this time with her care even after my explanation for the science behind her treatment and she is assured that the patient is being provided the standard of care for hip fracture. Trauma Team will continue to follow. Job ID: [id number]
[2018-10-30] MEDS ORDERED: HYDROcodone/Acetaminophen 5/325 mg Tablet PO PRN (19:31)
[2018-10-30] MEDS ORDERED: Sodium Chloride 0.9% 1,000 ML IV SCH (19:45)
[2018-10-30] MEDS: Acetaminophen 500 MG TAB PO PRN (20:02)
[2018-10-30] MEDS: Ibuprofen 800 MG TAB PO PRN (20:02)
[2018-10-30] MEDS: risperiDONE 0.25 MG TAB PO SCH (20:04)
[2018-10-31] MEDS: Levothyroxine Sodium 112 MCG TAB PO SCH (06:07)
[2018-10-31 07:30] LABS: Hemoglobin 8.4 g/dL (12.0-16.0); Mean Corpuscular HGB CONC 33.5 g/dL (32.0-36.0); Mean Corpuscular Hemoglobin 32.4 pg (27.0-31.0); Mean Corpuscular Volume 96.7 fL (78.0-98.0); Mean Platelet Volume 7.7 fL (7.4-10.4); Platelet Count 209 thou/uL (130-400); RBC Distribution Width 12.6 % (11.5-14.5); Red Blood Cell (RBC) Count 2.59 mill/uL (4.20-5.40); White Blood Cell (WBC) Count 4.3 thou/uL (4.8-10.8)
[2018-10-31] MEDS ORDERED: CEFAZOLIN 2 GM/50 ML BAG ONE (07:30)
[2018-10-31] MEDS ORDERED: Polyethylene Glycol 3350 17 GM Packet PO SCH ×2 (08:30→09:00)
[2018-10-31] MEDS: Acetaminophen 500 MG TAB PO PRN ×2 (09:34→15:08)
[2018-10-31] MEDS: Ibuprofen 800 MG TAB PO PRN (09:34)
[2018-10-31] MEDS: Ferrous Gluconate 324 MG TAB PO SCH (09:35)
[2018-10-31] MEDS: Multivitamin W/ Minerals 1 TAB PO SCH (09:35)
[2018-10-31] MEDS: Famotidine 20 MG TAB PO SCH (09:35)
[2018-10-31] MEDS: Senokot S 8.6-50 MG TAB PO SCH (09:35)
[2018-10-31] MEDS: risperiDONE 0.25 MG TAB PO SCH (09:36)
[2018-10-31] MEDS: Lisinopril 10 MG TAB PO SCH (09:36)
--- NOTE | 2018-10-31 14:04 | PRG ---
DATE OF SERVICE: 10/30/2018 SUBJECTIVE: The patient's is in the room along with a sitter. Both report that she has been doing well and is tolerating the physical therapy very well. The patient has been afebrile and vital signs have been stable. Her last blood pressure was 121/63. Laboratories today show hemoglobin is 8.7, which is higher than yesterday's 8.3. The patient will continue to work with physical therapy and occupational therapy to try to be as mobile as possible. We will have case management continue to work with the family and the patient as far as post hospitalization placement. Job ID: [id number]
[2018-10-31 15:55] VITALS: BP 161/73; TEMP 98.3
[2018-10-31] MEDS ORDERED: Apixaban 2.5 MG TAB PO SCH (21:00)
--- NOTE | 2018-11-01 10:59 | DIS ---
DATE OF ADMISSION: 10/27/2018 DATE OF DISCHARGE: 10/31/2018 RESIDENT: Quincy Hart MD DISCHARGE ATTENDING: Dr. Quesada. CONSULTS: Orthopedic Surgery. PROCEDURES: 1. On 10/27/2018, hip x-ray; impression, inter and subtrochanteric fracture of the left hip. 2. On 10/27/2018, pelvis x-ray; impression, inter and slightly subtrochanteric fracture of the left hip. 3. On 10/27/2018, brain CT; impression, no CT evidence of acute intracranial process. 4. On 10/27/2018, chest x-ray; impression, no acute process. 5. On 10/28/2018, hip x-ray; impression, status post reduction and gamma nail fixation of the acute traumatic displaced left intertrochanteric fracture. 6. On 10/28/2018, open reduction and internal fixation of intertrochanteric fracture utilizing a trochanteric fixation nail. PRIMARY DIAGNOSIS: Intertrochanteric hip fracture. SECONDARY DIAGNOSES: Hypothyroid, dementia, osteoporosis, atrial fibrillation, and macular degeneration. DISCHARGE MEDICATIONS: 1. Memantine 10 mg p.o. b.i.d. 2. Lisinopril 10 mg p.o. daily. 3. Levothyroxine 112 mcg p.o. daily. 4. Calcium carbonate 600 mg p.o. b.i.d. 5. Acetaminophen 1000 mg p.o. q.6 hours p.r.n. 6. Eliquis 2.5 mg p.o. b.i.d. 7. Famotidine 20 mg p.o. b.i.d. 8. Ferrous gluconate 324 mg p.o. b.i.d. 9. Ibuprofen 400 mg p.o. 8 hours p.r.n. 10. Milk of magnesia 30 mL p.o. daily p.r.n. 11. Multivitamin one tablet p.o. daily. 12. MiraLAX 17 g p.o. daily. 13. Risperdal 0.25 mg p.o. b.i.d. 14. Senokot two tablets p.o. b.i.d. 15. Tramadol 50 mg p.o. q.6 hours p.r.n. DISCONTINUED MEDICATIONS: Eliquis 5 mg p.o. b.i.d. HISTORY OF PRESENT ILLNESS/HOSPITAL COURSE: This is an 88-year-old female with history of atrial fibrillation and severe dementia, who presented to the hospital after falling out of her bed and was found to have a sub and intertrochanteric fracture. The patient underwent open reduction and internal fixation of said fracture and had unremarkable postoperative course after tolerating procedure well. Of note, the patient's home Eliquis dose of 5 mg p.o. b.i.d. was held for surgery, though it was eventually restarted at a lower dose per Pharmacy's recommendations considering the patient's body habitus. Medication was restarted at 2.5 mg p.o. b.i.d. several days after procedure. On the day of discharge, the patient was seen and evaluated by Dr. Quesada. The patient had no complaint nor did family that was present. The patient's vital signs were stable on day of discharge and exam was unremarkable including cardiopulmonary and GI exam. The patient was deemed stable for discharge to swing bed for continued physical and occupational therapy. DISPOSITION: Stable. DISCHARGE INSTRUCTIONS: Location: Swing bed unit. Diet: Regular diet. Activity: Orthopedic limitations. Weightbearing as tolerated on left lower extremity. Followup: Follow up with primary care physician, Dr. Bethany Elliott. Follow up with Dr. Jesus Valencia in 3 to 4 weeks. Follow up with Dr. Tarun Thomas in 14 days. Job ID: [id number]
--- NOTE | 2018-11-04 12:05 | EKG ---
Test Reason : Blood Pressure : / mmHG Vent. Rate : 076 BPM Atrial Rate : 076 BPM P-R Int : 126 ms QRS Dur : 076 ms QT Int : 434 ms P-R-T Axes : 057 015 068 degrees QTc Int : 488 ms Sinus rhythm with occasional Premature ventricular complexes and Premature atrial complexes Possible Left atrial enlargement Borderline ECG Confirmed by JORGE BENÍTEZ DO ([id number]), online content editor SHARDA KIMBALL ([id number]) on 11/04/2018 12:05:19 PM Referred By: Confirmed By:JORGE BENÍTEZ DO
== END 2018-10-31 15:47 | DRG 481 ==
LOC: ERS 08:08 → SURG A 10:56
PROVIDERS: ADMIT Surgery; ATTEND Surgery
PROC: 0QS704Z Reposition Left Upper Femur with Internal Fixation Device, Open Approach (ICD-10-PCS; principal; 2018-10-28)
DX: S72.142A Displaced intertrochanteric fracture of left femur, initial encounter for closed fracture (principal); R64 Cachexia; Z68.1 Body mass index [BMI] 19.9 or less, adult; W06.XXXA Fall from bed, initial encounter; Y92.003 Bedroom of unspecified non-institutional (private) residence as the place of occurrence of the external cause; I48.2 Chronic atrial fibrillation; E03.9 Hypothyroidism, unspecified; M81.0 Age-related osteoporosis without current pathological fracture; H35.30 Unspecified macular degeneration; S72.22XA Displaced subtrochanteric fracture of left femur, initial encounter for closed fracture; G30.9 Alzheimer's disease, unspecified; F02.80 Dementia in other diseases classified elsewhere, unspecified severity, without behavioral disturbance, psychotic disturbance, mood disturbance, and anxiety; Z86.718 Personal history of other venous thrombosis and embolism; Z90.49 Acquired absence of other specified parts of digestive tract
CPT/HCPCS: 36415; 70450; 71045; 72170; 76001; 80048; 80053; 85025; 85027; 85610; 85730; 86850; 86900; 86901; 93005; 96361; 96374; 96375; C1713; G0390; G8978-GP-CL; G8979-GP-CJ; G8987-GO-CL; G8988-GO-CJ; J0131; J1885; J2001; J2270; J2405; J2704; J3010